=== PATIENT | female | born 1995 | race Caucasian/White ===

== ENCOUNTER 2016-07-08 15:39 | Emergency (ER) | payer OTHER ==
[~2016-07-08 15:39] MED LIST: BACTRIM DS TABL1 TA2 PO; DITROPAN5 MG PO; ZITHROMAX PO
[2016-07-08 16:06] LABS: URINE SOURCE CLEAN CATCH
[2016-07-08 16:11] LABS: URINE APPEARANCE CLEAR; URINE BILIRUBIN NEG (NEG); URINE BLOOD NEG (NEG); URINE COLOR YELLOW; URINE GLUCOSE NEG (NORM); URINE KETONE NEG (NEG); URINE LEUKOCYTE ESTERASE TRACE (NEG); URINE NITRATE NEG (NEG); URINE PROTEIN NEG (NEG); URINE SPECIFIC GRAVITY >=1.030 (1.003-1.035); URINE UROBILINOGEN 0.2 MG/DL (NORM)
[2016-07-08 16:13] LABS: MICRO INDICATED? YES
[2016-07-08 16:24] LABS: CULTURE INDICATED? YES; URINE BACTERIA 1+ (NEG); URINE RBC 0-2 /[HPF] (0-2); URINE SQUAMOUS EPITHELIAL CELL MODERATE /[HPF]
[2016-07-11 02:27] LABS: CHLAMYDIA TRACH Not Detected (Not Detected); N GONOR Not Detected (Not Detected)
== END 2016-07-08 16:45 | disposition home or self-care (01) ==
LOC: SED 15:39
PROVIDERS: Physician Assistant
DX: B37.3 Candidiasis of vulva and vagina (principal); Z79.899 Other long term (current) drug therapy
CPT/HCPCS: 81003; 84703; 87086; 87491; 87591; 87808; 87905; 99284

== ENCOUNTER 2016-11-01 05:01 | Emergency (ER) | payer OTHER ==
[~2016-11-01] VITALS: Ht 165.1 cm; Wt 47.6 kg
[2016-11-01 06:22] LABS: AMPHETAMINE NEG (NEG); BARBITURATES NEG (NEG); BENZODIAZEPINES NEG (NEG); COCAINE NEG (NEG); MARIJUANA POS (NEG); OPIATES NEG (NEG); TRICYCLIC ANTIDEPRESSANTS NEG (NEG); U METHADONE NEG (NEG)
== END 2016-11-01 06:56 | disposition home or self-care (01) ==
LOC: CED 05:01
PROVIDERS: Emergency Medicine
DX: F41.9 Anxiety disorder, unspecified (principal)
CPT/HCPCS: 80307; 84703; 99284